=== PATIENT | female | born 1980 | race African-American/Black ===

== ENCOUNTER 2019-11-14 19:21 | Inpatient (IN) | payer MEDICAID, OTHER ==
[~2019-11-14] VITALS: Ht 165.1 cm; Wt 68.0 kg
[2019-11-14] MEDS ORDERED: SODIUM CHLORIDE 0.9% 1,000 ML IV ONE (20:32)
[2019-11-14] MEDS ORDERED: CLONIDINE 0.2MG TABLET PO SCH (20:45)
[2019-11-14] MEDS ORDERED: SODIUM CHLORIDE 0.9% 500 ML IV ONE (20:45)
[2019-11-14 21:23] LABS: CHLORIDE 105 mEq/L (98-107)
[2019-11-14 21:27] LABS: BASOPHILS % 1.2 % (0.0-2.0); HEMATOCRIT. 26.7 % (36.0-48.0); HEMOGLOBIN. 8.2 g/dL (12.0-16.0); LYMPHOCYTES % 33.1 % (20.0-50.0); MEAN CORPUSCULAR HEMOGLOBIN 25.8 pg (28.0-32.0); MEAN CORPUSCULAR VOLUME 83.8 fL (81.0-99.0); MEAN PLATELET VOLUME 8.7 fl (7.4-10.4); MONOCYTES % 7.7 % (2.0-8.0); PLATELET 271 x1000/uL (130-400); RED BLOOD CELL COUNT 3.19 mill/uL (4.2-5.4); RED CELL DISTRIBUTION WIDTH 27.3 % (11.6-14.6)
[2019-11-14 21:35] LABS: HCG SCREEN NEGATIVE
[2019-11-14 21:49] LABS: PLATELET ESTIMATE NORMAL
[2019-11-14] MEDS ORDERED: HYDRALAZINE 20MG/ML VIAL IV ONE (22:30)
[2019-11-15] MEDS: POTASSIUM CHLORIDE 20MEQ TABLET SR PO NR ×2 (00:23→01:50)
[2019-11-15] MEDS ORDERED: HYDRALAZINE 20MG/ML VIAL IV PRN (05:15)
[2019-11-15] MEDS ORDERED: MORPHINE SULFATE 2 MG/ML CPJ (NOT FOR IM USE) IV PRN (05:15)
[2019-11-15 05:20] VITALS: BP 169/105
[2019-11-15 06:44] LABS: CHLORIDE 109 mEq/L (98-107)
[2019-11-15 06:50] LABS: LDL CHOLESTEROL 47 mg/dL (5-100)
[2019-11-15 06:51] LABS: BASOPHILS % 0.9 % (0.0-2.0); EOSINOPHILS % 1.5 % (0.0-5.0); HEMATOCRIT. 24.4 % (36.0-48.0); HEMOGLOBIN. 7.7 g/dL (12.0-16.0); LYMPHOCYTES % 31.8 % (20.0-50.0); MEAN CORPUSCULAR HEMOGLOBIN 26.4 pg (28.0-32.0); MEAN CORPUSCULAR VOLUME 83.5 fL (81.0-99.0); MEAN PLATELET VOLUME 8.5 fl (7.4-10.4); MONOCYTES % 7.6 % (2.0-8.0); NEUTROPHILS % 58.2 % (40.0-76.0); PLATELET 221 x1000/uL (130-400); RED BLOOD CELL COUNT 2.92 mill/uL (4.2-5.4); RED CELL DISTRIBUTION WIDTH 27.2 % (11.6-14.6)
[2019-11-15 06:52] LABS: HDL CHOLESTEROL 89 mg/dL (40-59)
[2019-11-15] MEDS ORDERED: MULTIVITAMINS,THER W-MINERALS TABLET PO SCH (09:00)
[2019-11-15] MEDS ORDERED: FOLIC ACID 1MG TABLET PO SCH (09:00)
[2019-11-15] MEDS ORDERED: METOPROLOL TARTRATE 50MG TABLET PO SCH (09:00)
[2019-11-15] MEDS ORDERED: AMLODIPINE 10MG TABLET PO SCH (09:00)
[2019-11-15] MEDS ORDERED: ASPIRIN 325MG TABLET PO SCH (09:00)
[2019-11-15] MEDS ORDERED: LISINOPRIL 20MG TABLET PO SCH (09:00)
[2019-11-15] MEDS ORDERED: THIAMINE HCL 100MG TABLET PO SCH (09:00)
[2019-11-15] MEDS ORDERED: LISINOPRIL 10MG TABLET PO SCH (09:00)
[2019-11-15 10:00] VITALS: BP 166/106
[2019-11-15 12:00] VITALS: BP 139/88
[2019-11-15] MEDS ORDERED: HYDRALAZINE HCL 50MG TABLET PO NR (12:00)
[2019-11-15] MEDS ORDERED: THIA100T88 MT (12:21)
[2019-11-15] MEDS ORDERED: MULT-1116 MT (12:21)
[2019-11-15] MEDS ORDERED: FOLI-43 MT (12:21)
[2019-11-15] MEDS ORDERED: LOSA100T32 MT (12:21)
[2019-11-15] MEDS ORDERED: HYDR100T26 MT (12:21)
[2019-11-15 12:47] LABS: TOTAL IRON BINDING CAPACITY 323 ug/dL (250-450)
[2019-11-15 13:13] LABS: *AMPHETAMINES SCREEN URINE NEGATIVE (NEGATIVE); *BARBITURATES SCREEN URINE NEGATIVE (NEGATIVE); *COCAINE SCREEN URINE NEGATIVE (NEGATIVE); METHADONE URINE SCREEN NEGATIVE (NEGATIVE); OPIATES URINE SCREEN NEGATIVE (NEGATIVE); PHENCYCLIDINE URINE SCREEN NEGATIVE (NEGATIVE)
[2019-11-15 13:14] LABS: *BENZODIAZEPINES SCREEN URINE NEGATIVE (NEGATIVE)
[2019-11-15 13:18] LABS: HEPATITIS B SURFACE ANTIGEN NEGATIVE
[2019-11-15 13:47] LABS: HEPATITIS A AB IGM NEGATIVE (NEGATIVE)
[2019-11-15 14:00] VITALS: BP 132/91
[2019-11-15 14:23] LABS: CANNABINOID URINE SCREEN PRESUMTIVE POSITIVE (NEGATIVE)
[2019-11-15 14:47] VITALS: BP 132/91
[2019-11-15 15:25] VITALS: BP 137/87
[2019-11-15] MEDS ORDERED: HYDRALAZINE HCL 50MG TABLET PO SCH (21:00)
== END 2019-11-15 15:57 | disposition home or self-care (01) | DRG 199 ==
LOC: ER 19:21 → 3WST 11-15 00:56 → ENRESERV 11-15 03:57
PROVIDERS: ADMIT Internal Medicine; ATTEND Internal Medicine
DX: I16.1 Hypertensive emergency (principal); D64.9 Anemia, unspecified; F10.20 Alcohol dependence, uncomplicated; E87.6 Hypokalemia; R74.0 Nonspecific elevation of levels of transaminase and lactic acid dehydrogenase [LDH]; F12.90 Cannabis use, unspecified, uncomplicated; F17.210 Nicotine dependence, cigarettes, uncomplicated; T46.5X6A Underdosing of other antihypertensive drugs, initial encounter; Y92.89 Other specified places as the place of occurrence of the external cause; Z71.6 Tobacco abuse counseling; Z71.41 Alcohol abuse counseling and surveillance of alcoholic
CPT/HCPCS: 36415; 71045; 76700; 80048; 80053; 80061; 80305; 82728; 83540; 83550; 83880; 84443; 84484; 84703; 85025; 86705; 86709; 86803; 87340; 93005; 93306; 99291; J0360; J7030; J7040

== ENCOUNTER 2021-08-14 15:51 | Emergency (ER) | payer MEDICAID ==
[~2021-08-14] VITALS: Ht 162.6 cm; Wt 66.0 kg
[~2021-08-14 15:51] MED LIST: FOLI-43 MT; HYDR100T26 MT; LOSA100T32 MT; MULT-1116 MT; THIA100T88 MT
[2021-08-14] MEDS ORDERED: LOSARTAN POTASSIUM 100 MG TABLET PO ONE (16:45)
[2021-08-14] MEDS ORDERED: LOSA100T32 MT (16:48)
[2021-08-14 17:01] LABS: BASOPHILS % 0.6 % (0.0-2.0); EOSINOPHILS % 1.3 % (0.0-5.0); HEMATOCRIT. 27.4 % (36.0-48.0); HEMOGLOBIN. 8.6 g/dL (12.0-16.0); LYMPHOCYTES % 22.9 % (20.0-50.0); MEAN CORPUSCULAR HEMOGLOBIN 26.7 pg (28.0-32.0); MEAN CORPUSCULAR VOLUME 85.5 fL (81.0-99.0); MEAN PLATELET VOLUME 8.2 fl (7.4-10.4); NEUTROPHILS % 68.2 % (40.0-76.0); PLATELET 183 x1000/uL (130-400); RED BLOOD CELL COUNT 3.21 mill/uL (4.2-5.4); RED CELL DISTRIBUTION WIDTH 29.5 % (11.6-14.6)
[2021-08-14 17:10] LABS: CHLORIDE 107 mEq/L (98-107)
[2021-08-14 17:15] LABS: PLATELET ESTIMATE NORMAL
[2021-08-14 18:27] VITALS: BP 174/113
== END 2021-08-14 19:40 | disposition home or self-care (01) ==
LOC: ER 15:51
DX: I10 Essential (primary) hypertension (principal); D64.9 Anemia, unspecified; F12.10 Cannabis abuse, uncomplicated
CPT/HCPCS: 36415; 71045; 80053; 83880; 84484; 85025; 93005; 99285

== ENCOUNTER 2021-08-18 14:36 | Emergency (ER) | payer MEDICAID, OTHER ==
[~2021-08-18] VITALS: Ht 165.1 cm; Wt 75.0 kg
[2021-08-18] MEDS ORDERED: ACETAMINOPHEN 325MG TABLET PO STA (15:13)
[2021-08-18] MEDS ORDERED: ACET-2708 PO (17:10)
[2021-08-18 17:24] VITALS: BP 115/67
== END 2021-08-18 17:25 | disposition home or self-care (01) ==
LOC: ER 14:36
DX: S30.0XXA Contusion of lower back and pelvis, initial encounter (principal); W10.9XXA Fall (on) (from) unspecified stairs and steps, initial encounter; Y93.89 Activity, other specified; Y92.89 Other specified places as the place of occurrence of the external cause; Y99.8 Other external cause status
CPT/HCPCS: 72100; 81025; 99283

== ENCOUNTER 2023-08-23 23:34 | Emergency (ER) | payer OTHER ==
[~2023-08-23] VITALS: Ht 165.1 cm; Wt 51.0 kg
[~2023-08-23 23:34] MED LIST changes: +ACET-2708 PO; -LOSA100T32 MT; +LOSA100T33 MT
[2023-08-24 00:18] VITALS: BP 137/111; TEMP 97.8; O2SAT 99
[2023-08-24 00:19] VITALS: PULSE 84; RESP 16
[2023-08-24 00:52] LABS: EOSINOPHILS % 1.5 % (0.0-5.0); HEMATOCRIT. 34.7 % (36.0-48.0); HEMOGLOBIN. 11.5 g/dL (12.0-16.0); LYMPHOCYTES % 51.9 % (20.0-50.0); MEAN CORPUSCULAR HEMOGLOBIN 34.6 pg (28.0-32.0); MEAN CORPUSCULAR HGB CONC 33.2 g/dL (31.0-37.0); MEAN PLATELET VOLUME 8.5 fl (7.4-10.4); MONOCYTES % 8.4 % (2.0-8.0); NEUTROPHILS % 37.2 % (40.0-76.0); PLATELET 193 x1000/uL (130-400); RED BLOOD CELL COUNT 3.33 mill/uL (4.2-5.4); RED CELL DISTRIBUTION WIDTH 22.2 % (11.6-14.6); WHITE BLOOD COUNT 4.7 x1000/uL (4.5-11.0)
[2023-08-24 01:05] LABS: ALANINE AMINOTRANSFERASE 21 IU/L (10-49); ALBUMIN 4.6 g/dL (3.2-4.8); ASPARTATE AMINOTRANSFERASE 74 IU/L (<34); BILIRUBIN TOTAL 0.8 mg/dL (0.1-1.0); CALCIUM 9.1 mg/dL (8.7-10.4); CARBON DIOXIDE 26 mEq/L (21-32); CHLORIDE 102 mEq/L (98-107); CREATININE 0.8 mg/dL (0.6-1.0); GLUCOSE 93 mg/dL (70-105); POTASSIUM 3.2 mEq/L (3.5-5.1); PROTEIN TOTAL 8.6 g/dL (6.0-8.3); SODIUM 138 mEq/L (136-145); UREA NITROGEN BLOOD 8 mg/dL (9-23)
[2023-08-24 01:06] LABS: TROPONIN I HIGH SENSITIVITY < 4 ng/L (3.0-34)
[2023-08-24 01:07] LABS: DIFFERENTIAL COMMENT 1
[2023-08-24 01:34] LABS: HCG SCREEN NEGATIVE
[2023-08-24 01:48] LABS: ETHANOL BLOOD 300 mg/dL (<10)
[2023-08-24] MEDS ORDERED: FAMO-135 MT (03:20)
== END 2023-08-24 04:33 | disposition home or self-care (01) ==
LOC: ER 23:42
DX: R07.89 Other chest pain (principal); F10.129 Alcohol abuse with intoxication, unspecified; K29.70 Gastritis, unspecified, without bleeding; I10 Essential (primary) hypertension; F12.90 Cannabis use, unspecified, uncomplicated; Y90.8 Blood alcohol level of 240 mg/100 ml or more
CPT/HCPCS: 36415; 71045; 80053; 80320; 84484; 84703; 85025; 93005; 99285; G0480

== ENCOUNTER 2024-02-09 08:22 | Emergency (ER) | payer MEDICAID ==
[~2024-02-09] VITALS: Ht 167.6 cm; Wt 68.5 kg
[~2024-02-09 08:22] MED LIST changes: +FAMO-135 MT; +HYDR100T11 MT; -HYDR100T26 MT
[2024-02-09 08:23] VITALS: O2SAT 97
[2024-02-09 09:27] LABS: DIFFERENTIAL COMMENT 1; HEMATOCRIT. 42.1 % (36.0-48.0); HEMOGLOBIN. 14.1 g/dL (12.0-16.0); MEAN CORPUSCULAR HEMOGLOBIN 39.5 pg (28.0-32.0); MEAN CORPUSCULAR HGB CONC 33.6 g/dL (31.0-37.0); MEAN CORPUSCULAR VOLUME 117.6 fL (81.0-99.0); MEAN PLATELET VOLUME 9.6 fl (7.4-10.4); PLATELET 151 x1000/uL (130-400); RED BLOOD CELL COUNT 3.58 mill/uL (4.2-5.4); RED CELL DISTRIBUTION WIDTH 19.7 % (11.6-14.6); WHITE BLOOD COUNT 7.3 x1000/uL (4.5-11.0)
[2024-02-09 09:28] LABS: HCG SCREEN NEGATIVE
[2024-02-09 09:32] LABS: CARBON DIOXIDE 22 mEq/L (21-32); CHLORIDE 100 mEq/L (98-107); INR 1.2; POTASSIUM 3.1 mEq/L (3.5-5.1); PROTHROMBIN TIME 13.4 sec (9.6-11.0); SODIUM 143 mEq/L (136-145)
[2024-02-09 09:33] LABS: CALCIUM 9.8 mg/dL (8.7-10.4)
[2024-02-09] MEDS: PANTOPRAZOLE 40MG DR TABLET PO ONE (09:34)
[2024-02-09] MEDS: PANTOPRAZOLE 40MG DR TABLET PO SCH (09:35)
[2024-02-09] MEDS: LORAZEPAM 1MG TABLET PO ONE (09:35)
[2024-02-09] MEDS: MAGNESIUM/ALUMINUM HYDROXIDE/SIMETHICONE 30ML UDC PO STA (09:35)
[2024-02-09 09:38] LABS: CREATININE 0.9 mg/dL (0.6-1.0); GLUCOSE 58 mg/dL (70-105); UREA NITROGEN BLOOD 6 mg/dL (9-23)
[2024-02-09 09:57] LABS: PLATELET ESTIMATE NORMAL
[2024-02-09 09:58] LABS: ANISOCYTOSIS 2+
[2024-02-09 10:10] LABS: TROPONIN I HIGH SENSITIVITY < 4 ng/L (3.0-34)
[2024-02-09] MEDS ORDERED: OMEP40CA20 MT (10:34)
[2024-02-09] MEDS ORDERED: CHLO25CA10 PO (10:34)
[2024-02-09 10:50] VITALS: BP 138/76; PULSE 78; RESP 16; TEMP 36.89184; O2SAT 97
== END 2024-02-09 10:48 | disposition home or self-care (01) ==
LOC: ER 08:22
DX: R07.89 Other chest pain (principal); R10.13 Epigastric pain; F12.10 Cannabis abuse, uncomplicated; I10 Essential (primary) hypertension; Z79.899 Other long term (current) drug therapy
CPT/HCPCS: 36415; 71045; 80048; 83880; 84484; 84703; 85025; 93005; 99285

== ENCOUNTER 2024-03-05 17:07 | Inpatient (IN) | payer MEDICAID ==
[~2024-03-05] VITALS: Ht 162.6 cm; Wt 54.4 kg
[~2024-03-05 17:07] MED LIST changes: +CHLO25CA10 PO; +OMEP40CA20 MT
[2024-03-05] MEDS ORDERED: MORPHINE SULFATE 4 MG/ML INJ (FOR IV/IM USE) IV STA (18:25)
[2024-03-05] MEDS ORDERED: ONDANSETRON HCL 4MG/2ML INJ IV STA (18:25)
[2024-03-05 18:29] LABS: BASOPHILS % 0.4 % (0.0-2.0); EOSINOPHILS % 0.1 % (0.0-5.0); HEMATOCRIT. 46.4 % (36.0-48.0); HEMOGLOBIN. 15.9 g/dL (12.0-16.0); LYMPHOCYTES % 15.9 % (20.0-50.0); MEAN CORPUSCULAR HEMOGLOBIN 39.6 pg (28.0-32.0); MEAN CORPUSCULAR HGB CONC 34.3 g/dL (31.0-37.0); MEAN CORPUSCULAR VOLUME 115.4 fL (81.0-99.0); MEAN PLATELET VOLUME 10.2 fl (7.4-10.4); MONOCYTES % 7.8 % (2.0-8.0); NEUTROPHILS % 75.8 % (40.0-76.0); PLATELET 202 x1000/uL (130-400); RED BLOOD CELL COUNT 4.02 mill/uL (4.2-5.4); RED CELL DISTRIBUTION WIDTH 17.7 % (11.6-14.6); WHITE BLOOD COUNT 9.3 x1000/uL (4.5-11.0)
[2024-03-05 18:32] LABS: DIFFERENTIAL COMMENT 1
[2024-03-05 18:33] LABS: ADD RBC MORPHOLOGY YES
[2024-03-05 18:36] LABS: POTASSIUM 3.7 mEq/L (3.5-5.1)
[2024-03-05 18:37] LABS: CALCIUM 10.6 mg/dL (8.7-10.4)
[2024-03-05 19:14] LABS: PLATELET ESTIMATE NORMAL
[2024-03-05 19:33] LABS: CREATININE 1.5 mg/dL (0.6-1.0)
[2024-03-05 19:45] LABS: HCG SCREEN NEGATIVE
[2024-03-05 19:48] LABS: ALANINE AMINOTRANSFERASE 35 IU/L (10-49); ALBUMIN 4.4 g/dL (3.2-4.8); ASPARTATE AMINOTRANSFERASE 52 IU/L (<34); BILIRUBIN DIRECT 2.2 mg/dL (<=3.0); BILIRUBIN TOTAL 4.2 mg/dL (0.1-1.0); PHOSPHORUS 2.4 mg/dL (2.5-4.9)
[2024-03-05 20:02] LABS: ETHANOL BLOOD < 10 mg/dL (<10)
[2024-03-05] MEDS ORDERED: MAGNESIUM 2 G PREMIX 50 ML IV ONE (20:15)
[2024-03-05] MEDS: MORPHINE SULFATE 4 MG/ML INJ (FOR IV/IM USE) IV NR (20:23)
[2024-03-05] MEDS: SODIUM CHLORIDE 0.9% 1,000 ML IV ONE ×2 (20:23→22:37)
[2024-03-05] MEDS: PANTOPRAZOLE SODIUM 40 MG/VIAL IV ONE (20:23)
[2024-03-05] MEDS: ONDANSETRON HCL 4MG/2ML INJ IV NR (20:23)
[2024-03-05] MEDS ORDERED: POTASSIUM-SODIUM PHOSPHATE POWDER PACKET PO ONE (22:00)
[2024-03-05 22:04] LABS: *AMPHETAMINES SCREEN URINE NEGATIVE (NEGATIVE)
[2024-03-05 22:05] LABS: *BARBITURATES SCREEN URINE NEGATIVE (NEGATIVE); *BENZODIAZEPINES SCREEN URINE NEGATIVE (NEGATIVE); *COCAINE SCREEN URINE NEGATIVE (NEGATIVE); CANNABINOID URINE SCREEN PRESUMPTIVE POSITIVE (NEGATIVE); ECSTASY MDMA SCREEN URINE NEGATIVE (NEGATIVE); METHADONE URINE SCREEN NEGATIVE (NEGATIVE); OPIATES URINE SCREEN NEGATIVE (NEGATIVE); PHENCYCLIDINE URINE SCREEN NEGATIVE (NEGATIVE)
[2024-03-06] VITALS (8 sets, daily range): BP systolic 124–171; BP diastolic 89–118; PULSE 69–132; RESP 18–20; TEMP 36.114–37.61412; O2SAT 100
[2024-03-06] MEDS ORDERED: MORPHINE SULFATE 4 MG/ML INJ (FOR IV/IM USE) IV PRN ×2 (06:15→10:15)
[2024-03-06] MEDS: PANTOPRAZOLE SODIUM 40 MG/VIAL IV SCH (09:13)
[2024-03-06] MEDS: FOLIC ACID 1 MG, THIAMINE HCL 100 MG, MVI, ADULT NO.1 10 ML in DEXTROSE 5% WATER 988.8 ML IV ONE (09:13)
[2024-03-06] MEDS: AMLODIPINE 10MG TABLET PO SCH (09:14)
[2024-03-06] MEDS ORDERED: NALOXONE HCL 0.4MG/ML VIAL IV PRN (13:00)
[2024-03-06] MEDS: HYDRALAZINE HCL 50MG TABLET PO SCH (13:07)
[2024-03-06] MEDS: KETOROLAC 30MG/ML VIAL IV PRN (14:23)
[2024-03-06 16:43] LABS: CARBON DIOXIDE 27 mEq/L (21-32); CHLORIDE 100 mEq/L (98-107); SODIUM 136 mEq/L (136-145)
[2024-03-06 16:44] LABS: CALCIUM 9.2 mg/dL (8.7-10.4)
[2024-03-06 16:49] LABS: GLUCOSE 103 mg/dL (70-105); UREA NITROGEN BLOOD 17 mg/dL (9-23)
[2024-03-06] MEDS: POTASSIUM CHLORIDE 20MEQ TABLET SR PO NR (17:57)
[2024-03-06] MEDS: HYDROCODONE/ACETAMINOPHEN 5/325MG TABLET PO PRN (18:08)
[2024-03-06] MEDS: ONDANSETRON HCL 4MG/2ML INJ IV PRN (18:08)
[2024-03-06] MEDS: METOPROLOL TARTRATE 25MG TABLET PO SCH (21:17)
[2024-03-06] MEDS: CHLORDIAZEPOXIDE 25MG CAPSULE PO SCH (21:26)
[2024-03-06] MEDS: DEXT 5% WATER + KCL 20MEQ/L 1,000 ML IV SCH (22:08)
[2024-03-07] VITALS (7 sets, daily range): BP systolic 100–143; BP diastolic 64–109; PULSE 83–93; RESP 18–20; TEMP 35.78064–37.28076; O2SAT 100
== END 2024-03-07 16:51 | disposition home or self-care (01) | DRG 282 ==
LOC: ER 17:07 → 6WST 22:44 → EDBEDREQTM 22:46
PROVIDERS: ADMIT Internal Medicine; ATTEND Internal Medicine
DX: K85.20 Alcohol induced acute pancreatitis without necrosis or infection (principal); N17.0 Acute kidney failure with tubular necrosis; F10.139 Alcohol abuse with withdrawal, unspecified; F12.10 Cannabis abuse, uncomplicated; I10 Essential (primary) hypertension; Z87.891 Personal history of nicotine dependence; Z87.11 Personal history of peptic ulcer disease
CPT/HCPCS: 36415; 74176; 76705; 80048; 80076; 80305; 80320; 83735; 84100; 84703; 85025; 93005; 99291; J1885; J2270; J2405; J2470; J3411; J3490; J7030; J7060; J7070; G0480